=== PATIENT | female | born 1960 | race Caucasian/White ===

== ENCOUNTER 2022-10-29 20:03 | Emergency (ER) | payer OTHER ==
[2022-10-29 20:16] VITALS: RESP 20; BMI 33.4
[2022-10-29] MEDS ORDERED: ACETAMINOPHEN 1000 MG/100 ML BAG IVPB ONE (22:02)
[2022-10-29] MEDS ORDERED: ONDANSETRON 4 MG/2 ML VIAL IVPUSH ONE (22:12)
[2022-10-29] MEDS ORDERED: ACETAMINOPHEN INJECTION 100 ML IVPB ONE (22:23)
[2022-10-29] MEDS ORDERED: ONDANSETRON 4 MG/2 ML VIAL ONE (22:23)
[2022-10-29 23:41] LABS: INR 1.03 (0.83-1.09); PROTHROMBIN TIME (PATIENT) 11.9 SEC (9.7-13.0)
[2022-10-29 23:44] LABS: ACTIVATED PTT 33.2 SECONDS (25.2-36.5)
[2022-10-29 23:49] LABS: POTASSIUM 4.8 mmol/L (3.5-5.1)
[2022-10-29 23:50] LABS: CALCIUM 9.3 mg/dL (8.5-10.1)
[2022-10-29 23:51] LABS: BLOOD UREA NITROGEN 12.4 mg/dL (7-18)
[2022-10-29 23:54] LABS: CREATININE 0.7 mg/dL (0.55-1.3)
[2022-10-29 23:56] LABS: BILIRUBIN,TOTAL 0.5 mg/dL (0.2-1); TOT PROT 7.4 g/dl (6.4-8.2)
[2022-10-30 02:57] LABS: EOS % 1.7 % (0-4.5); HEMATOCRIT 40.1 % (32.4-45.2); HEMOGLOBIN 13.7 GM/dL (10.7-15.3); LYMPH % 26.2 % (8-40); MCH 27.3 pg (25.7-33.7); MCHC 34.1 g/dl (32.0-36.0); MEAN PLT VOLUME 8.8 fl (7.5-11.1); MONO % 5.8 % (3.8-10.2); NEUT % 65.3 % (42.8-82.8); PLATELET COUNT 254 10^3/uL (134-434); RBC 5.01 M/mm3 (3.60-5.2); RDW 13.5 % (11.6-15.6); WHITE BLOOD COUNT 7.7 K/mm3 (4.0-10.0)
[2022-10-30 03:18] VITALS: BP 118/41; PULSE 65; TEMP 98.5
[2022-10-30] MEDS ORDERED: DIPHTH,PERTUSS(ACELL),TET 0.5 ML DISP.SYRIN IM ONE ×2 (03:38→03:40)
== END 2022-10-30 03:51 | disposition home or self-care (01) ==
LOC: JER 20:03
PROC: 3E033NZ Introduction of Analgesics, Hypnotics, Sedatives into Peripheral Vein, Percutaneous Approach (ICD-10-PCS; principal; 2022-10-29)
PROC: 3E033GC Introduction of Other Therapeutic Substance into Peripheral Vein, Percutaneous Approach (ICD-10-PCS; 2022-10-29)
PROC: 3E0234Z Introduction of Serum, Toxoid and Vaccine into Muscle, Percutaneous Approach (ICD-10-PCS; 2022-10-30)
DX: S09.90XA Unspecified injury of head, initial encounter (principal); S29.011A Strain of muscle and tendon of front wall of thorax, initial encounter; S39.012A Strain of muscle, fascia and tendon of lower back, initial encounter; S50.812A Abrasion of left forearm, initial encounter; M54.2 Cervicalgia; M79.602 Pain in left arm; M25.551 Pain in right hip; M25.552 Pain in left hip; R07.9 Chest pain, unspecified; R11.0 Nausea; R10.13 Epigastric pain; V43.53XA Car driver injured in collision with pick-up truck in traffic accident, initial encounter; Y92.410 Unspecified street and highway as the place of occurrence of the external cause
CPT/HCPCS: 36415; 70450-TC; 71046-TC-FY; 71260-TC; 72125-TC; 72128-TC; 72131-TC; 72170-TC-FY; 73090-TC-LT-FY; 74177-TC; 80053; 84484; 85025; 85610; 85730; 90715; 93005; 93010; 99285-25; Q9967